=== PATIENT | female | born 1940 | race Caucasian/White ===

== ENCOUNTER 2019-07-23 11:00 | Outpatient (CLI) | payer MEDICARE, BC, SELFPAY ==
--- NOTE | ~2019-07-23 | XR_ITS ---
EXAMINATION:XR cervical spine min 6V DATE: 07/23/2019 11:19 INDICATION: Neck pain TECHNIQUE: AP, lateral in neutral, flexion, extension, lateral swimmers and odontoid views of the cer vical spine are provided. COMPARISON: None FINDINGS: There is reversal of the normal cervical lordosis. Bone alignment is normal. There is no la xity with flexion or extension. The odontoid is intact. No fracture is identified. The vertebral body heights are maintained. There is moderate loss of intervertebral disc space height at C3-4, C4-5, C5 -6, and C6-7. Small degenerative osteophytes project from the anterior endplates of multiple vertebra l bodies. There is moderate multilevel facet and uncovertebral joint osteoarthritis. Prevertebral sof t tissues are normal. IMPRESSION: 1. Moderate to severe cervical spondylosis without acute findings. Reviewed, dictated and finalized at location A.
== END 2019-07-23 11:01 | disposition home or self-care (01) ==
PROVIDERS: PCP Family Medicine; Visit Provider Family Medicine
DX: M47.892 Other spondylosis, cervical region (principal)
CPT/HCPCS: 72052

== ENCOUNTER → 2019-12-30 10:15 | Outpatient (CLI) | payer MEDICARE, BC, SELFPAY ==
--- NOTE | ~2019-12-30 | DEXA_ITS ---
Bone Density Report Name: Dominga Melendez Age: 79 Sex: Female Ethnicity: White Date of : 1940 Indication: postmenopausal; screening for osteoporosis; height loss; Referring Provider: Tash, Jinny Johnson Study: Bone densitometry was performed. Exam Date: December 30, 2019 Accession number: [id number] Bone Density: Region BMD T-score Z-score Classification AP Spine (L1-L4) 1.199 1.4 3.9 Normal Femoral Neck (Left) 0.754 -0.9 1.3 Normal Total Hip (Left) 0.986 0.4 2.3 Normal Femoral Neck (Right) 0.737 -1.0 1.2 Normal Total Hip (Right) 0.957 0.1 2.0 Normal Total Hip Mean 0.972 0.3 2.2 Normal World Health Organization criteria for BMD impression classify patients as: Normal (T-score at or above -1.0), Osteopenia (T-score between -1.0 and -2.5), or Osteoporosis (T-score at or below -2.5). 10-year Fracture Risk: FRAX not reported because: All T-scores for Spine Total, Hip Total, Femoral Neck at or above -1.0 Previous Exams: Region Exam Age BMD T-score BMD Change BMD Change Date g/cm2 vs Baseline vs Previous AP Spine(L1-L4) 12/30/2019 79 1.199 1.4 0.133* 0.021 12/01/2016 76 1.179 1.2 0.112* 0.087* 11/11/2013 73 1.091 0.4 0.025* 0.015 10/28/2010 70 1.077 0.3 0.010 0.014 10/16/2007 67 1.063 0.1 -0.004 -0.004 09/19/2004 64 1.066 0.2 Total Hip(Left) 12/30/2019 79 0.986 0.4 -0.154* -0.028* 12/01/2016 76 1.014 0.6 -0.127* -0.036* 11/11/2013 73 1.049 0.9 -0.091* -0.019 10/28/2010 70 1.069 1.0 -0.072* -0.018 10/16/2007 67 1.087 1.2 -0.053* -0.053* 09/19/2004 64 1.140 1.6 Total Hip(Right) 12/30/2019 79 0.957 0.1 -0.093* 0.007 12/01/2016 76 0.950 0.1 -0.100* -0.064* 11/11/2013 73 1.014 0.6 -0.036* -0.017 10/28/2010 70 1.031 0.7 -0.019 -0.007 10/16/2007 67 1.037 0.8 -0.013 -0.013 09/19/2004 64 1.050 0.9 *Denotes significance at 95% confidence level, LSC for AP Spine = 0.022 g/cm2, LSC for Total Hip = 0.027 g/cm2 Clinical Information Provided by Patient: Has used the following medications: Vitamin D, MTV Patient maximum height was 62 Menopause Age: 55 Onset of menses at age 15 Number of children 2
--- NOTE | ~2019-12-30 | MM_ITS ---
EXAMINATION: MM screening delphine BI w fariha HISTORY: Screening mammogram TECHNIQUE: Craniocaudal and mediolateral oblique 3-D tomosynthesis images were obtained and synthetic 2-D images were generated. CAD analysis was submitted and interpreted. COMPARISON: 12/27/2018, 12/06/2017, 12/01/2016 bilateral digital screening mammogram examinations BREAST PARENCHYMAL COMPOSITION: There are scattered areas of fibroglandular density. FINDINGS: Occasional benign calcifications are again noted on the left. There is no evidence of suspi cious mass, calcification, or architectural distortion to suggest malignancy in either breast. There has been no suspicious interval change. IMPRESSION: 1. No mammographic evidence of malignancy. 2. Recommend routine screening mammography in one year. BI-RADS Category 2: Benign finding(s). Reviewed, dictated and finalized at location A. 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
== END ==
PROVIDERS: PCP Family Medicine; Visit Provider Nurse Practitioner Obstetrics & Gynecology
DX: Z12.31 Encounter for screening mammogram for malignant neoplasm of breast (principal); Z78.0 Asymptomatic menopausal state
CPT/HCPCS: 77063; 77067; 77080

== ENCOUNTER → 2020-12-07 14:21 | Outpatient (CLI) | payer MEDICARE, BC, SELFPAY ==
--- NOTE | ~2020-12-07 | XR_ITS ---
XR hip LT min 3V w AP pelvis DATE: 12/07/2020 14:54 INDICATION: Left hip pain TECHNIQUE: AP pelvis. AP and lateral views of left hip. COMPARISON: 12/07/2020 lumbar spine FINDINGS: Diffuse osteopenia. Multilevel degenerative disc disease of the lumbar spine. Normal alignment at the pubic symphysis and sacroiliac joints. There is severe left hip osteoarthritis. No left hip fracture or dislocation, avascular necrosis or bone destruction is evident. Calcified uterine fibroid. IMPRESSION: Severe left hip osteophyte is Osteopenia Multilevel degenerative disc disease of the lumbar spine Reviewed, dictated and finalized at location A.
--- NOTE | ~2020-12-07 | XR_ITS ---
XR lumbar spine min 4V DATE: 12/07/2020 14:54 INDICATION: Low back pain TECHNIQUE: AP, lateral, bilateral oblique views, coned lateral lumbosacral view COMPARISON: None FINDINGS: There is diffuse osteopenia. There is moderate degenerative disc disease at L5-S1 and severe degenerative disc disease at the [place] ining lumbar interspaces. There is degenerative change at the apophyseal joints with associated grade 1 anterolisthesis at L4-5 . No spondylolisthesis. The included lower thoracic and lumbar pedicles are intact. No fracture or bone destruction of the azul mbar spine. The sacroiliac joints are intact. Calcified uterine fibroid. IMPRESSION: Prominent multilevel degenerative disc disease Grade 1 anterolisthesis at L4-5 due to degenerative change at the apophyseal joints Osteopenia Reviewed, dictated and finalized at location A. IMPRESSION: Prominent multilevel degenerative disc disease Grade 1 anterolisthesis at L4-5 due to degenerative change at the apophyseal june ints Osteopenia
== END ==
PROVIDERS: PCP Family Medicine; Visit Provider Family Medicine
DX: M54.50 Low back pain, unspecified (principal); M25.559 Pain in unspecified hip; M25.752 Osteophyte, left hip; M51.36 Other intervertebral disc degeneration, lumbar region; M85.89 Other specified disorders of bone density and structure, multiple sites; M43.16 Spondylolisthesis, lumbar region
CPT/HCPCS: 72110; 73502

== ENCOUNTER → 2021-01-05 10:45 | Outpatient (CLI) | payer MEDICARE, BC, SELFPAY ==
--- NOTE | ~2021-01-05 | MM_ITS ---
EXAMINATION: MM screening delphine BI w fariha HISTORY: Screening mammogram TECHNIQUE: Craniocaudal and mediolateral oblique 3-D tomosynthesis images were obtained and synthetic 2-D images were generated. CAD analysis was submitted and interpreted. COMPARISON: 12/26/2019, 12/27/2018, 12/06/2017 bilateral screening mammogram examinations BREAST PARENCHYMAL COMPOSITION: There are scattered areas of fibroglandular density. FINDINGS: Benign occasional calcifications are again noted. There is no evidence of suspicious mass, calcification, or architectural distortion to suggest malignancy in either breast. There has been no suspicious interval change. IMPRESSION: 1. No mammographic evidence of malignancy. 2. Recommend routine screening mammography in one year. BI-RADS Category 2: Benign finding(s). Reviewed, dictated and finalized at location A. 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
== END ==
PROVIDERS: PCP Family Medicine; Visit Provider Family Medicine
DX: Z12.31 Encounter for screening mammogram for malignant neoplasm of breast (principal)
CPT/HCPCS: 77063; 77067

== ENCOUNTER 2021-06-09 23:36 | Inpatient (IN) | payer MEDICARE, BC, SELFPAY ==
--- NOTE | ~2021-06-09 | XR_ITS ---
EXAMINATION: XR hip LT 2V w AP pelvis INDICATION: Left hip pain, initial encounter TECHNIQUE: AP view the pelvis and two views of the left hip are obtained. COMPARISON: 12/07/2020 FINDINGS: There is a spiral fracture in the proximal shaft of the left femur which originates at the level of the lesser trochanter. The fracture is slightly overriding and demonstrates 20 degrees of po sterior angulation at the fracture site. There is advanced osteoarthritis of the left hip. No additio nal fracture is identified. IMPRESSION: 1. Spiral fracture of the proximal shaft of the left femur. 2. Advanced osteoarthritis of left hip. Reviewed, dictated and finalized at location A.
--- NOTE | ~2021-06-09 | CT_ITS ---
EXAMINATION: CT cervical spine wo con DATE: 06/10/2021 01:39 INDICATION: Ground-level fall. Head and neck injury. TECHNIQUE: Computed tomography (CT) of the cervical spine was performed without intravenous contrast. Automated exposure control and iterative reconstruction technique were employed. Exam dose: 155.07 mGy-cm total exam DLP. COMPARISON: None FINDINGS: There is reversal cervical curvature. Prominent degenerative cystic changes at the atlantoaxial joint including large up to 6.5 x 7 mm cyst ic lesion at the right parasagittal base of the dens and prominent cystic change in the subarticular C1 right lateral mass, likely degenerative in nature. There is severe degenerative disc disease at C3-4, C4-5, C5-C6 and C6-7, with associated mild retroli sthesis at C4-5 and C5-6. No fracture or dislocation or locked facet or prevertebral soft tissue swelling is detected. IMPRESSION: Reversal cervical curvature Severe degenerative changes of cervical spine No fracture, dislocation or locked facet or prevertebral soft tissue swelling Reviewed, dictated and finalized at Location A. Reviewed, dictated and finalized at location A.
--- NOTE | ~2021-06-09 | XR_ITS ---
EXAMINATION: XR surgery orthopedic DATE: 06/10/2021 18:25 INDICATION: Fracture of proximal left femur. TECHNIQUE: 4 intraoperative fluoroscopic views of left femur were obtained. I was not present. Fluoro scopy exposure time was 82 seconds. COMPARISON: Pelvis and left hip radiographs 06/10/2021 FINDINGS: There is a spiral intertrochanteric and subtrochanteric fracture of proximal left femur sta tus post open reduction internal fixation with antegrade intramedullary candelaria, femoral head/neck screw. The distal fracture fragment demonstrates near-anatomic alignment. There is severe left hip osteoart hritis. IMPRESSION: 1. Spiral intertrochanteric and subtrochanteric fracture of proximal left femur status post open redu ction internal fixation. 2. Severe left hip osteoarthritis. Reviewed, dictated and finalized at location A. IMPRESSION: 1. Spiral intertrochanteric and subtrochanteric fracture of proximal left femur status post open reduction internal fixation. 2. Severe left hip osteoarthritis.
--- NOTE | ~2021-06-09 | CT_ITS ---
EXAMINATION: CT abdomen pelvis w con DATE: 06/10/2021 01:39 INDICATION: Left hip pain post ground-level fall TECHNIQUE: Computed tomography (CT) of the abdomen and pelvis was performed with 100 mL Omnipaque-350 intravenous contrast. Automated exposure control and iterative reconstruction technique were employe d. The dose-length product was 311.72 mGy-cm. COMPARISON: None FINDINGS: 4-5 mm right lower lobe nodule. Heart size is normal. No pericardial or pleural effusion. Gallbladder , spleen, pancreas, bilateral adrenal glands and left kidney are normal. Subcentimeter low-attenuatio n likely cysts in the liver and at the upper pole of the right kidney. 1 mm nonobstructing stone at t he lower pole of the right kidney. Mild diverticulosis along the sigmoid colon without adjacent infla mmatory change to suggest diverticulitis. Small bowel and appendix are normal. Bladder is normal. Tommy cified degenerated uterine fibroids at the fundus. Bilateral adnexa are unremarkable. Multiple phlebo liths in the pelvis. No free intraperitoneal gas or fluid. No pathologically enlarged abdominal or pe lvic lymphadenopathy. There is a partially visualized hematoma in the quadriceps musculature surrounding a displaced intert rochanteric/subtrochanteric spiral fracture of the proximal left femur. There is approximately one joshua lf shaft width medial displacement along with 2-3 cm proximal migration of the distal fragment which includes the lesser trochanter. Severe osteoarthritis at the left hip with subarticular cystic change s and remodeling of the articular surfaces about the left femoral head and acetabulum. IMPRESSION: 1. Prominent hematoma surrounding a displaced spiral fracture of the intratrochanteric/subtrochanteri c proximal left femur. 2. No acute intra-abdominal/pelvic process. 3. Nonobstructing 1 mm right renal stone. 4. Calcified uterine fibroid. 5. Diverticulosis. Reviewed, dictated and finalized at location A. IMPRESSION: 1. Prominent hematoma surrounding a displaced spiral fracture of the intratroch anteric/subtrochanteric proximal left femur. 2. No acute intra-abdominal/pelvic process. 3. Nonobstructing 1 mm right renal stone. 4. Calcified uterine fibroid. 5. Diverticulosis.
--- NOTE | ~2021-06-09 | CT_ITS ---
EXAMINATION: CT brain wo con DATE: 06/10/2021 01:39 INDICATION: Ground-level fall TECHNIQUE: Computed tomography (CT) of the head was performed without intravenous contrast. The mA wa s adjusted according to patient size. Iterative reconstruction technique was employed. Exam dose: 60 5.33 mGy-cm total exam DLP. COMPARISON: None FINDINGS: There is prominent bilateral carotid siphon internal carotid artery calcification and verte bral and basilar artery calcification. There is nonspecific diminished attenuation of the cerebral white matter, likely due to chronic small vessel ischemic changes. No intracranial mass lesion or hemorrhage or cerebrovascular accident, midline shift or mass effect e ffect is evident. There is moderate cerebral volume loss. Included paranasal sinuses and mastoid air cells are normally developed and aerated. No fracture or bone destruction of the cranial vault. IMPRESSION: Cerebral atherosclerosis and chronic small vessel ischemic changes of the cerebral white matter No acute intracranial finding Reviewed, dictated and finalized at Location A. Reviewed, dictated and finalized at location A.
[2021-06-09 23:34] VITALS: BP 177/84; PULSE 97; RESP 22; TEMP 37.1; O2SAT 98
[2021-06-10] VITALS (19 sets, daily range): BP systolic 127–166; BP diastolic 61–93; PULSE 76–782; RESP 12–20; TEMP 36.2–37.4; O2SAT 94–100; BMI 21.5
--- NOTE | 2021-06-10 00:05 | ECG_ITS ---
Measurements Intervals [place] Rate: 89 P: 63 HI: 144 QRS: 10 QRSD: 106 T: 15 QT: 390 QTc: 477 Interpretive Statements SINUS RHYTHM POSSIBLE LEFT ATRIAL ENLARGEMENT BORDERLINE R WAVE PROGRESSION, ANTERIOR LEADS BORDERLINE ST-T WAVE ABNORMALITY- INFERIOR LEADS BORDERLINE ECG Electronically Signed On 06-10-2021 6:41:06 CDT by Adelso Medina D.O.
--- NOTE | 2021-06-10 00:37 | ED.FALL ---
HPI - Fall General Chief Complaint: Fall Stated Complaint: FALL WITH HIP INJURY Time Seen by Provider: 06/09/21 23:53 Source: patient History of Present Illness HPI Narrative: Patient presents with a fall. Reports her has Parkinson's them they were getting ready for bed he tripped over his wheelchair she attempted to catch him and ended up falling on her left hip. She denies striking her head. Denies any loss of conscious denies any focal numbness or weakness. Reports pain to her left hip that is achy, constant, radiates down her leg, worse with attempting to move her left leg. She denies any prodrome prior to the fall such as chest pain lightheadedness or shortness of breath. Related Data Home Medications Medication Instructions Recorded Confirmed aspirin 81 mg tablet,delayed 81 mg PO DAILY 12/17/18 03/16/21 release cholecalciferol (vitamin D3) 125 5,000 unit PO DAILY 12/17/18 03/16/21 mcg (5,000 unit) capsule magnesium carbonate 250 mg capsule mg PO 03/11/20 03/16/21 mecobalamin (vitamin B12) 1,000 2,500 mcg PO DAILY tablet 03/11/20 03/16/21 mcg chewable tablet multivitamin 1 tablet PO DAILY 03/11/20 03/16/21 Allergies Allergy/AdvReac Type Severity Reaction Status Date / Time No Known Allergies Allergy Unknown NONE Verified 06/09/21 23:43 Review of Systems Review of Systems: CONSTITUTIONAL: Denies fever, chills, or sweats. EYES: Denies visual changes, redness, or discharge. ENT: Denies rhinorrhea, congestion, sore throat, or otalgia. CARDIOVASCULAR: Denies chest pain, palpitations, or edema. RESPIRATORY: Denies cough or dyspnea. GASTROINTESTINAL: Denies abdominal pain, nausea, vomiting, or diarrhea. GENITOURINARY: Denies dysuria or hematuria. SKIN: Denies rash or itching. MUSCULOSKELETAL: Denies back pain, joint pain, or myalgia. NEUROLOGIC: Denies headache, numbness, dizziness, or weakness. PSYCHIATRIC: Denies anxiety or depression. All systems reviewed & are unremarkable except as noted in HPI and below PMFSH Past Medical History Medical History Essential hypertension Hyperlipidemia associated with type 2 diabetes mellitus Mixed hyperlipidemia Type 2 diabetes mellitus without complication, without long-term current use of insulin Vitamin D deficiency Surgical History Surgical History No pertinent past surgical history Family History Family History Mother Heart disease Arthritis Other Carcinoma of colon Family history of arthritis Family history of cardiovascular disease Family history of coronary artery disease Social History Social History Second hand tobacco smoke exposure: No Alcohol intake: current Substance use: never Substance use type: does not use Gender identity (if verbalized by the patient): Female Exam Narrative: GENERAL: Well-appearing, well-nourished, and in no acute distress. HEAD: Normocephalic, atraumatic. EYES: PERRLA and EOMI. ENT: Nares clear, no rhinorrhea or epistaxis. Mucous membranes moist. NECK: Supple. No masses. No JVD CHEST: Clear to auscultation. No respiratory distress. No wheezes rales or rhonchi HEART: Regular rate and rhythm. No murmur heard. Normal peripheral pulses. ABDOMEN: Soft, nontender, nondistended, normal active bowel sounds. EXTREMITIES: external rotation and shortening of the left leg there is diffuse tenderness to the left hip cap refill less than 2 seconds in the left lower extremity SKIN: Warm, dry, no rash. NEURO: Cranial nerves II through XII are intact patient is 5 out of 5 strength all extremities sensation intact to light touch in all extremities alert and oriented x3. PSYCH: Normal mood and affect. Course Reevaluation(s) Reevaluation #1: Patient resting comfortably results and plan reviewe
[2021-06-10 00:53] LABS: Basophils Percent Auto 0.3 % (0.2-1.2); Eosinophils Percent Auto 0.1 % (0-4.4); Hematocrit 35.5 % (37.0-47.0); Immature Granulocyte Absolute 0.07 K/mm3 (0.00-0.031); Immature Granulocyte Percent A 0.6 % (0-0.5); Lymphocytes Absolute Auto 0.94 K/mm3 (0.9-3.2); Lymphocytes Percent Auto 7.9 % (18.3-44.2); Mean Corpuscular HGB Conc 33.8 g/dl (32-36); Mean Corpuscular Hemoglobin 30.7 pg (26-34); Mean Corpuscular Volume 90.8 fl (80-100); Monocytes Absolute Auto 0.9 K/mm3 (0.1-0.6); Monocytes Percent Auto 7.5 % (2.6-8.5); Neutrophils Absolute Auto 9.9 K/mm3 (1.3-6.7); Neutrophils Percent Auto 83.6 % (45.5-73.1); Platelet Count Result 272 k/mm3 (150-375); Red Blood Count 3.91 M/mm3 (4.2-5.4); Red Cell Distribution Width 12.5 % (11.5-14.5); White Blood Count 11.9 K/mm3 (4.5-10.0)
[2021-06-10 01:00] LABS: Alanine Aminotransferase 22 U/L (4-35); Albumin Level 4.4 g/dL (3.5-5.1); Alkaline Phosphatase 122 U/L (38-126); Anion Gap 5 mmol/L (8-16); Aspartate Amino Transferase 32 U/L (14-36); Bilirubin,Total 0.8 mg/dL (0.2-1.3); Blood Urea Nitrogen 18 mg/dL (7-17); Calcium 9.2 mg/dL (8.4-10.2); Carbon Dioxide 26 mmol/L (22-30); Chloride 101 mmol/L (98-107); Estimated CRCL calculation 55 ml/min; Estimated Glomerular Filt Rate > 60; Glucose 173 mg/dL (65-110); Potassium 3.8 mmol/L (3.4-5.0); Sodium 132 mmol/L (137-145)
[2021-06-10 01:06] LABS: INR 1.2; Prothrombin Time 14.7 Seconds (11.1-14.7)
[2021-06-10 01:07] LABS: Partial Thromboplastin Time 21.4 SECONDS (22.3-36.8)
[2021-06-10] MEDS: MORPHINE SULFATE (*CRX) 4 MG/ML INJ IV PUSH ×2 (01:15→05:00)
[2021-06-10 02:08] LABS: Appearance Urine Clear (Clear); Bilirubin Urine Negative (Negative); Blood Urine Negative (Negative); Color Urine Yellow (Yellow); Glucose Urine UA Negative (Negative); Ketones Urine 2+ mg/dL (Negative); Leukocyte Esterase Ur Negative LEU/UL (Negative); Nitrate Urine Negative (Negative); Protein Urine Trace mg/dL (Negative); Specific Grav Ur 1.015 (1.001-1.035); Urobilinogen Urine 0.2 mg/dL (<2.0)
[2021-06-10 02:18] LABS: Bacteria Urine Trace /hpf; Mucus Urine Rare /lpf
[2021-06-10 02:19] LABS: Add Urine Microscopic? YES
[2021-06-10 03:57] LABS: SARS-CoV-2 RNA PCR Negative
[2021-06-10] MEDS: SODIUM CHLORIDE 0.9% IV 1,000 ML 125 ML IV CONT ×2 (05:01→12:25)
--- NOTE | 2021-06-10 05:24 | ADMGEN ---
This patient, Dominga Melendez, was admitted to Medical Room 244-. Patient/family oriented to hospital policies and general routines including ID bracelet, bed and alarms, visiting hours, pain management, procedures, bathroom and other care routines, personal items, smoking policy, room service/diet, and visiting hours. Information on how to activate the Rapid Response Team has been discussed. Patient/Family are encouraged to report perceived risks to care and to ask questions if they do not understand what they are told or what they should do.
--- NOTE | 2021-06-10 08:59 | PM.IMHP ---
H&P: HPI History of Present Illness Date/Time: 06/10/21 08:59 Chief Complaint: Fall Narrative: 81-year-old female with diet-controlled diabetes and high blood pressure and cholesterol, presents to the emergency room after a slip and fall while trying to help prevent her from falling. Patient states that she went down hard on a carpeted surface resulting in the fracture of her leg. Patient is seen postoperatively she is doing well and she has no complaints at time my interview other than feeling is a she is uncomfortable in the bed. Pain is reported as 5/10. PACU nurse present and providing her with adequate pain control. Review of Systems Review of Systems: All systems reviewed & are unremarkable except as noted in HPI and below PMFSH Past Medical History Medical History Essential hypertension Hyperlipidemia associated with type 2 diabetes mellitus Mixed hyperlipidemia Type 2 diabetes mellitus without complication, without long-term current use of insulin Vitamin D deficiency Surgical History Surgical History No pertinent past surgical history Family History Family History Mother Heart disease Arthritis Other Carcinoma of colon Family history of arthritis Family history of cardiovascular disease Family history of coronary artery disease Social History Social History Smoking status: Never smoker Second hand tobacco smoke exposure: No Alcohol intake: never Substance use: never Substance use type: does not use Gender identity (if verbalized by the patient): Female Spiritual care concerns: No Meds Home Medications and Allergies Home Medications Medication Instructions Recorded Confirmed Type aspirin 81 mg tablet,delayed 81 mg PO DAILY 12/17/18 06/10/21 History release cholecalciferol (vitamin D3) 125 5,000 unit PO DAILY 12/17/18 06/10/21 History mcg (5,000 unit) capsule blood sugar diagnostic #100 each 04/22/19 06/10/21 Rx magnesium carbonate 250 mg capsule 250 mg PO DAILY 03/11/20 06/10/21 History mecobalamin (vitamin B12) 1,000 2,500 mcg PO DAILY tablet 03/11/20 06/10/21 History mcg chewable tablet multivitamin 1 tablet PO DAILY 03/11/20 06/10/21 History lancets 28 gauge #100 each 09/09/20 06/10/21 Rx losartan 50 mg tablet 50 mg PO DAILY #90 tablet 09/09/20 06/10/21 Rx lancets 30 gauge #100 ea 11/30/20 06/10/21 Rx rosuvastatin 5 mg tablet 5 mg PO .T TH #30 tablet 11/30/20 06/10/21 Rx meloxicam 15 mg tablet 15 mg PO DAILY #30 tablet 06/07/21 06/10/21 Rx tramadol 50 mg PO Q6H PRN 06/10/21 06/10/21 History Allergies Allergy/AdvReac Type Severity Reaction Status Date / Time No Known Allergies Allergy Unknown NONE Verified 06/09/21 23:43 Vital Signs Vital Signs - 24 hr 06/09/21 23:34 06/10/21 04:22 06/10/21 05:01 Temperature 98.7 F Pulse Rate 97 86 87 Respiratory Rate 22 H 15 16 Blood Pressure 177/84 H 127/67 137/70 Pulse Oximetry 98 96 98 06/10/21 05:26 Temperature 97.1 F L Pulse Rate 78 Respiratory Rate 18 Blood Pressure 146/80 H Pulse Oximetry 96 Exam Const: General: comfortable and no acute distress HENMT: General nose exam: Normal nares present Mouth: Yes moist mucous membranes Eyes: General: appearance normal, both eyes and all related structures Neck: Neck: no JVD Resp: Effort & Inspection: normal respiratory effort Auscultation: clear to auscultation bilaterally Cardio: Rate: regular rate Rhythm: regular rhythm GI: Inspection: non-distended GI Palp: Yes Soft to palpation Auscultation: normal bowel sounds Urinary Catheter: Urinary Catheter: patent and draining and urine clear Skin: General skin exam: normal color and no rashes or lesions noted Neuro: Cognition (Neuro): normal cognition S
--- NOTE | 2021-06-10 10:02 | PM.CNOR ---
Assessment and Plan Assessment and plan (1) Closed femur fracture: Qualifiers: Encounter type: initial encounter Femur location: unspecified portion of femur Fracture morphology: unspecified fracture morphology Laterality: left Qualified Code(s): S72.92XA - Unspecified fracture of left femur, initial encounter for closed fracture <Kat Kathryn Diggs, [employer]CLAIM[employer] - Last Filed: 06/10/21 10:55> Code(s): S72.90XA - Unspecified fracture of unspecified femur, initial encounter for closed fracture <Kat Andrew. Ruwe, [employer] RECLAIMER - Last Filed: 06/10/21 10:55> Status: Acute <Kat M. Jjwe, [employer] RECLAIMER - Last Filed: 06/10/21 10:55> Assessment and Plan: Radiographs the left hip reveal a spiral fracture of the proximal shaft of the left femur and advanced osteoarthritis of left hip. The fracture type and injury as well as radiographs discussed with the patient and family. Operative and nonoperative treatment options reviewed. The patients questions were answered. The patient desires operative treatment. Discussed Left Hip Long IT Nail Risks of surgery including but not limited to neurovascular damage, wound complications, blood clot, pulmonary embolus, stroke, myocardial infarction, anesthetic risks up to and including were reviewed. Continued pain and possible dysfunction were explained. No guarantees were offered. The patient understands and wishes to proceed. Plan: Left Hip Long IT Nail by Dr. Amin Continue bedrest. Pain control. Obtain consent. NPO. Ice lateral hip. <Katsa Kathryn Gardneroswaldo, [facility] - Last Filed: 06/10/21 10:55> (2) Arthritis of left hip: Code(s): M16.12 - Unilateral primary osteoarthritis, left hip <Kat Andrew. oswaldo, [employer] RECLAIMER - Last Filed: 06/10/21 10:55> Status: Acute <Kat Andrew. Caterina, [employer] RECLAIMER - Last Filed: 06/10/21 10:55> (3) Osteoporosis: Code(s): M81.0 - Age-related osteoporosis without current pathological fracture <Kat Andrew. Ruwe, [employer] RECLAIMER - Last Filed: 06/10/21 10:55> Status: Acute <Kat Andrew. oswaldo, [employer] RECLAIMER - Last Filed: 06/10/21 10:55> (4) Fall: Qualifiers: Encounter type: initial encounter Qualified Code(s): W19.XXXA - Unspecified fall, initial encounter <Kat MoralesCALLUM Aggarwal - Last Filed: 06/10/21 10:55> Code(s): W19.XXXA - Unspecified fall, initial encounter <Kat CALLUM Webster - Last Filed: 06/10/21 10:55> Status: Acute <KatCALLUM Flores - Last Filed: 06/10/21 10:55> Additional Plan Radiographs and assessment reviewed with attending MD and consulted surgeon, Dr. Brad Amin. Dr. Amin agrees with plan of care. No further recommendations at this time. <CALLUM Silva - Last Filed: 06/10/21 10:55> Medical record, history and consult reviewed. Patient seen and examined. 81-year-old with left hip subtrochanteric fracture. Desires operative treatment. Plan long intramedullary trochanteric nail left femur. <Brad Amin MD - Last Filed: 06/10/21 11:10> History of Present Illness HPI Consult date: 06/10/21 <CALLUM Silva - Last Filed: 06/10/21 10:55> 06/10/21 <Brad Amin MD - Last Filed: 06/10/21 11:10> Consult reason: fracture ( Left hip fracture) <CALLUM Silva - Last Filed: 06/10/21 10:55> Chief complaint: femur fracture <CALLUM Silva - Last Filed: 06/10/21 10:55> Narrative: 81-year-old female admitted via EMS to the [facility] status post fall at home while attempting to help her , who suffers from Parkinson's, to get into bed. She tripped over her and fell onto the left side and was then unable to bear weight. Radiographs of the left hip reveal a left hip fracture. Surgery consulted by the emergency room physician. Patient does have a history of left hip DJD and was previously treated by Dr. Li with an intra-articular injection most recently in February. Patient denies any other join
--- NOTE | 2021-06-10 11:10 | WPDHPUPDATE1 ---
History and Physical Update Update Date/Time: 06/10/21 11:10 History and Physical has been reviewed, including an updated exam of the patient. There are NO changes in the patient's condition. Risks, benefits, and alternatives have been discussed and questions answered. Patient agrees to proceed with procedure.
[2021-06-10] MEDS: LACTATED RINGERS 1,000 ML 30 ML IV CONT ×3 (14:45→18:35)
[2021-06-10] MEDS: TRANEXAMIC ACID 1,000MG/ISO100 1,000 MG/100 ML BAG 200 MG IVPB (14:57)
--- NOTE | 2021-06-10 15:51 | SUR.PREOP ---
TRAM BILLY UPDATED ON SURGERY START DELAY. PATIENT ALSO NOTIFIED.
[2021-06-10 16:13] LABS: Glucose Point of Care 91 mg/dl (65-105)
--- NOTE | 2021-06-10 17:06 | WPDANESEPPF ---
Anes - Initial Pre Proc Eval Procedure: Operation Date: 06/10/21 15:30 Proposed Procedures p Left Intertrochanteric Nail - Brad Amin MD Date/Time: 06/10/21 17:06 Surgeon: Mony Eli MD Pre Op Diagnosis: femur fracture Patient Data Age: 81 Gender: F Height: 1.52 m Weight: 50 kg Last Vital Signs Temp 37.4 C 06/10/21 14:43 Pulse 79 06/10/21 14:43 Resp 16 06/10/21 14:43 BP 151/68 H 06/10/21 14:43 Pulse Ox 100 06/10/21 14:43 Allergies Allergy/AdvReac Type Severity Reaction Status Date / Time No Known Allergies Allergy Unknown NONE Verified 06/09/21 23:43 Home Medications Medication Instructions Recorded Confirmed Type aspirin 81 mg tablet,delayed 81 mg PO DAILY 12/17/18 06/10/21 History release cholecalciferol (vitamin D3) 125 5,000 unit PO DAILY 12/17/18 06/10/21 History mcg (5,000 unit) capsule blood sugar diagnostic #100 each 04/22/19 06/10/21 Rx magnesium carbonate 250 mg capsule 250 mg PO DAILY 03/11/20 06/10/21 History mecobalamin (vitamin B12) 1,000 2,500 mcg PO DAILY tablet 03/11/20 06/10/21 History mcg chewable tablet multivitamin 1 tablet PO DAILY 03/11/20 06/10/21 History lancets 28 gauge #100 each 09/09/20 06/10/21 Rx losartan 50 mg tablet 50 mg PO DAILY #90 tablet 09/09/20 06/10/21 Rx lancets 30 gauge #100 ea 11/30/20 06/10/21 Rx rosuvastatin 5 mg tablet 5 mg PO .T TH #30 tablet 11/30/20 06/10/21 Rx meloxicam 15 mg tablet 15 mg PO DAILY #30 tablet 06/07/21 06/10/21 Rx tramadol 50 mg PO Q6H PRN 06/10/21 06/10/21 History Laboratory Tests 06/10/21 06/10/21 06/10/21 00:44 00:44 00:44 WBC 11.9 K/mm3 H K/mm3 (4.5-10.0) RBC 3.91 M/mm3 L M/mm3 (4.2-5.4) Hgb 12.0 g/dL g/dL (12.0-15.0) Hct 35.5 % L % (37.0-47.0) MCV 90.8 fl fl (80-100) MCH 30.7 pg pg (26-34) MCHC 33.8 g/dl g/dl (32-36) RDW 12.5 % % (11.5-14.5) Plt Count 272 k/mm3 k/mm3 (150-375) MPV 9.0 fl fl (7.4-10.4) Immature Gran % (Auto) 0.6 % H % (0-0.5) Neut % (Auto) 83.6 % H % (45.5-73.1) Lymph % (Auto) 7.9 % L % (18.3-44.2) [place] % (Auto) 7.5 % % (2.6-8.5) Eos % (Auto) 0.1 % % (0-4.4) Baso % (Auto) 0.3 % % (0.2-1.2) Lymph # (Auto) 0.94 K/mm3 K/mm3 (0.9-3.2) [place] # (Auto) 0.9 K/mm3 H K/mm3 (0.1-0.6) Eos # (Auto) 0.0 K/mm3 K/mm3 (0-0.3) Baso # (Auto) 0.0 K/mm3 K/mm3 (0.0-0.1) Abs Immat Gran (auto) 0.07 K/mm3 H K/mm3 (0.00-0.031) Absolute Neuts (auto) 9.9 K/mm3 H K/mm3 (1.3-6.7) Absolute Nucleated RBC 0.0 K/mm3 K/mm3 (0.0-0.012) Nucleated RBC % 0.0 % % (0.0-0.2) PT 14.7 Seconds Seconds (11.1-14.7) INR 1.2 APTT 21.4 SECONDS L SECONDS (22.3-36.8) Sodium 132 mmol/L L mmol/L (137-145) Potassium 3.8 mmol/L mmol/L (3.4-5.0) Chloride 101 mmol/L mmol/L (98-107) Carbon Dioxide 26 mmol/L mmol/L (22-30) Anion Gap 5 mmol/L L mmol/L (8-16) BUN 18 mg/dL H mg/dL (7-17) Creatinine 0.50 mg/dL L mg/dL (0.7-1.0) Estim Creat Clear Calc 55 ml/min ml/min Estimated GFR > 60 (59 - ) Glucose 173 mg/dL H mg/dL (65-110) POC Capillary Glucose Calcium 9.2 mg/dL mg/dL (8.4-10.2) Total Bilirubin 0.8 mg/dL mg/dL (0.2-1.3) AST 32 U/L U/L (14-36) ALT 22 U/L U/L (4-35) Alkaline Phosphatase 122 U/L U/L (38-126) Total Protein 7.0 g/dL g/dL (6.3-8.2) Albumin 4.4 g/dL g/dL (3.5-5.1) Urine Color Urine Appearance Urine pH Ur Specific [place] Urine Protein Urine Glucose (UA) Urine Ketones Ur Blood (Man) Urine Nitra
[2021-06-10] MEDS: ceFAZolin 2 GM/D5W 50 ML 2 GM/50 ML BAG IVPB (17:12)
[2021-06-10] MEDS: LIDO 1%/EPINEPHRINE 1:100,000 50 ML VIAL 20 ML INFILTRATE (17:50)
--- NOTE | 2021-06-10 18:35 | W.PM.PROC2 ---
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 She presents for operative treatment. Description of Procedure After informed consent the operative extremity was marked in the preoperative holding area. Patient received intravenous antibiotics. The patient was taken to the operative room, placed in the supine position, general anesthesia induced by the anesthesia team, and was placed on a fracture table with longitudinal traction applied to the right leg. The hip fracture was reduced to near anatomic position and verified with image intensification. A time-out was performed confirming the patient, site of the surgery and plan. The right lower extremity was prepped and draped sterilely from the knee to the iliac crest region using a ChloraPrep skin solution. Incision was made just proximal to greater trochanter down to the subcutaneous tissues. Hemostasis controlled with electrocautery. Blunt dissection through the fascia to the tip of the greater trochanter. A starter awl was placed at the tip of the greater trochanter into the medullary canal of the femur. This was checked with image intensification and was in good position. Intramedullary guide candelaria positioned. A one-step hand reaming done proximally. Intramedullary canal was reamed with a 12.5 millimeter flexible reamer. Neck angle selected off of preoperative radiographs temp plating. 125 degree 11.5mm X 34cm Nail opened on the back table and assembled. This was then inserted over the guide candelaria to the correct depth. Guide candelaria removed. Lag screw was then placed with a stab incision over the lateral femur using a 10 blade knife. Blunt dissection down to the lateral side of the bone. Soft tissue protectors placed. Guide pin placed in the center center position of the femoral head and measured. 85 millimeter x 10.5 millimeter lag screw placed to correct depth and verified with image intensification. Traction released from the leg and compression of the fracture performed with the external compression device. Proximal locking screw placed. Distal locking of the nail then performed. Stab incision made lateral distal thigh. Blunt dissection down lateral side of the femur. Soft tissue protector placed. Femur drilled from lateral to medial through the distal nail. Distal femur measured and the appropriate size screw placed. Image intensification confirmed the placement through the locking hole. Final image intensification confirmed reduction of the fracture and placement of the hardware. Wounds then thoroughly irrigated with antibiotic solution. Fascia repaired with 0 Vicryl interrupted suture. Subcutaneous tissue repaired with 00 Vicryl interrupted suture and skin repaired with geetha. Sterile dressings applied. Patient then awoke from anesthesia, extubated, taken to recovery room stable condition. All sponge, needle and instrument counts correct at the end the case. Implants Shazia natural Nail 125 degree 11.5 mm diameter 34 cm length, 10.5 mm x 85 mm lag screw, 32.5 mm x 5 mm distal locking screw Estimated Blood Loss 100 Urine Output 1,000 Drains No Packing No Pathology None sent Complications None Condition Stable Disposition PACU
[2021-06-10] MEDS: fentaNYL CITRATE INJ (*CRX) 100 MCG/2 ML VIAL 25 MCG IV PUSH ×4 (18:58→19:23)
[2021-06-10] MEDS: FAMOTIDINE 20 MG TABLET PO (22:45)
[2021-06-11] MEDS: MORPHINE SULFATE (*CRX) 4 MG/ML INJ IV PUSH (00:29)
[2021-06-11 04:14] VITALS: BP 135/71; PULSE 83; RESP 18; TEMP 36.4; O2SAT 99
[2021-06-11 06:06] LABS: Basophils Percent Auto 0.2 % (0.2-1.2); Hemoglobin 10.2 g/dL (12.0-15.0); Immature Granulocyte Absolute 0.04 K/mm3 (0.00-0.031); Immature Granulocyte Percent A 0.4 % (0-0.5); Lymphocytes Absolute Auto 1.41 K/mm3 (0.9-3.2); Lymphocytes Percent Auto 15.5 % (18.3-44.2); Mean Corpuscular HGB Conc 32.9 g/dl (32-36); Mean Corpuscular Hemoglobin 31.3 pg (26-34); Mean Corpuscular Volume 95.1 fl (80-100); Mean Platelet Volume 9.3 fl (7.4-10.4); Monocytes Absolute Auto 1.2 K/mm3 (0.1-0.6); Monocytes Percent Auto 13.3 % (2.6-8.5); Neutrophils Absolute Auto 6.4 K/mm3 (1.3-6.7); Neutrophils Percent Auto 70.6 % (45.5-73.1); Platelet Count Result 214 k/mm3 (150-375); Red Blood Count 3.26 M/mm3 (4.2-5.4); Red Cell Distribution Width 12.4 % (11.5-14.5); White Blood Count 9.1 K/mm3 (4.5-10.0)
[2021-06-11 06:19] LABS: Anion Gap 2 mmol/L (8-16); Blood Urea Nitrogen 10 mg/dL (7-17); Calcium 8.4 mg/dL (8.4-10.2); Carbon Dioxide 29 mmol/L (22-30); Chloride 103 mmol/L (98-107); Estimated CRCL calculation 46 ml/min; Estimated Glomerular Filt Rate > 60; Glucose 108 mg/dL (65-110); Magnesium 2.1 mg/dL (1.6-2.3); Sodium 134 mmol/L (137-145)
--- NOTE | 2021-06-11 08:35 | PM.IMPN ---
Progress Note: A&P Assessment and Plan (1) Fall: Qualifiers: Encounter type: initial encounter Qualified Code(s): W19.XXXA - Unspecified fall, initial encounter Code(s): W19.XXXA - Unspecified fall, initial encounter Status: Acute (2) Closed femur fracture: Qualifiers: Encounter type: initial encounter Femur location: unspecified portion of femur Fracture morphology: unspecified fracture morphology Laterality: left Qualified Code(s): S72.92XA - Unspecified fracture of left femur, initial encounter for closed fracture Code(s): S72.90XA - Unspecified fracture of unspecified femur, initial encounter for closed fracture Status: Acute (3) Hyperlipidemia associated with type 2 diabetes mellitus: Code(s): E11.69 - Type 2 diabetes mellitus with other specified complication; E78.5 - Hyperlipidemia, unspecified Status: Acute (4) Essential hypertension: Code(s): I10 - Essential (primary) hypertension Status: Acute Additional Plan Admit to med surge Pain control Monitor vital signs Q shift Consult ortho To OR for IM nailing Home medications reconciled VTEP per ortho 06/11/21 POD 1 s/p IM nailing L femur doing ok pain controlled VS and labs WNLs postop orders per ortho PT/OT VTEP Subjective Date/time seen: 06/11/21 08:35 pt ok complains of pain from SCD causing cramping in her post op leg otherwise doing ok Exam Const: General: comfortable and no acute distress HENMT: General nose exam: Normal nares present Mouth: Yes moist mucous membranes Eyes: General: appearance normal, both eyes and all related structures Neck: Neck: no JVD Resp: Effort & Inspection: normal respiratory effort Auscultation: clear to auscultation bilaterally Cardio: Rate: regular rate Rhythm: regular rhythm GI: Inspection: non-distended Auscultation: normal bowel sounds Urinary Catheter: Urinary Catheter: patent and draining and urine clear Skin: General skin exam: normal color and no rashes or lesions noted Neuro: Cognition (Neuro): normal cognition Speech: normal speech Motor exam (neuro): 5/5 motor strength present throughout (Left lower extremity postoperative leg is not evaluated) and Normal motor muscle tone present throughout Extrem: General: normal to inspection, no edema, no pedal edema and other (L lateral hip w 2 sites covered by gauze dressings and covered w tegaderm ) Psych: Mental Status: mental status grossly normal Affect: normal affect Objective Data Vital Signs Vital Signs: Vital Signs - 24 hr 06/10/21 14:00 06/10/21 14:43 06/10/21 16:00 Temperature 98.8 F 99.3 F Pulse Rate 79 79 80 Respiratory Rate 18 16 16 Blood Pressure 136/61 151/68 H 144/80 H Pulse Oximetry 99 100 99 06/10/21 18:35 06/10/21 18:50 06/10/21 19:05 Temperature 97.2 F L Pulse Rate 86 82 78 Respiratory Rate 16 20 13 Blood Pressure 152/93 H 166/77 H 166/79 H Pulse Oximetry 100 100 95 06/10/21 19:20 06/10/21 19:35 06/10/21 19:50 Temperature Pulse Rate 82 76 85 Respiratory Rate 12 18 19 Blood Pressure 162/90 H 151/77 H 131/71 Pulse Oximetry 97 96 97 06/10/21 20:00 06/10/21 20:15 06/10/21 20:45 Temperature 98.1 F 98.1 F 98.1 F Pulse Rate 782 H 782 H 76 Respiratory Rate 20 20 20 Blood Pressure 133/76 133/76 128/65 Pulse Oximetry 98 98 94 06/10/21 21:05 06/10/21 21:45 06/10/21 22:00 Temperature 98.1 F 98 F Pulse Rate 76 76 Respiratory Rate 20 20 Blood Pressure 128/65 128/65 Pulse Oximetry 98 95 94 06/10/21 23:56 06/11/21 04:14 Temperature 98.9 F 97.5 F L Pulse Rate 77 83 Respiratory Rate 18 18 Blood Pressure 134/66 135/71 Pulse Oximetry 98 99 Intake/Output Intake/Output: Intake & Output 06/08/21 06/09/21 06/10/21 06/11/21 23:59 23:59 23:59 23:59 Intake Total 2490 350 Output Total 2500 1000 Balance -10 -650 Meds/Results Medications: Active Medications Generic Name Dose Route Start Last Admin
[2021-06-11] MEDS: CYANOCOBALAMIN 1,000 MCG TABLET 2000 MCG PO (09:19)
[2021-06-11] MEDS: SENNA/DOCUSATE SODIUM TABLET 2 TAB PO ×2 (09:19→16:57)
[2021-06-11] MEDS: FAMOTIDINE 20 MG TABLET PO ×2 (09:19→20:11)
[2021-06-11] MEDS: LOSARTAN POTASSIUM 50 MG TABLET PO (09:20)
--- NOTE | 2021-06-11 09:55 | P.PNAN_ITS ---
Anes - Prog Note Post-Op Date/Time: 06/11/21 09:55 Cardiovascular status: normal Respiratory status: normal Airway patency: baseline Mental status: baseline Post-Op hydration status: normal Vital Signs: Last Vital Signs Temp 97.5 F L 06/11/21 04:14 Pulse 83 06/11/21 04:14 Resp 18 06/11/21 04:14 BP 135/71 06/11/21 04:14 Pulse Ox 99 06/11/21 04:14 Pain Score (VAS): 10 I/O: Intake & Output 06/10/21 06/11/21 06/11/21 23:59 07:59 15:59 Intake Total 1150 350 360 Output Total 1500 1000 Balance -350 -650 360 Laboratory Tests 06/11/21 05:30 06/11/21 05:30 06/10/21 06/11/21 06/11/21 16:10 05:30 05:30 WBC 9.1 RBC 3.26 L Hgb 10.2 L Hct 31.0 L MCV 95.1 MCH 31.3 MCHC 32.9 RDW 12.4 Plt Count 214 MPV 9.3 Immature Gran % (Auto) 0.4 Neut % (Auto) 70.6 Lymph % (Auto) 15.5 L [place] % (Auto) 13.3 H Eos % (Auto) 0.0 Baso % (Auto) 0.2 Lymph # (Auto) 1.41 [place] # (Auto) 1.2 H Eos # (Auto) 0.0 Baso # (Auto) 0.0 Abs Immat Gran (auto) 0.04 H Absolute Neuts (auto) 6.4 Absolute Nucleated RBC 0.0 Nucleated RBC % 0.0 Sodium 134 L Potassium 4.0 Chloride 103 Carbon Dioxide 29 Anion Gap 2 L BUN 10 D Creatinine 0.60 L Estim Creat Clear Calc 46 Estimated GFR > 60 Glucose 108 POC Capillary Glucose 91 Calcium 8.4 Magnesium 2.1 Post-procedural complaints: none Patient Feedback: Patient satisfied with anesthetic care.
[2021-06-11] MEDS: MULTIVITAMINS THERAPEUTIC TAB (*BKC) 1 TABLET PO (11:27)
[2021-06-11] MEDS: CYANOCOBALAMIN 500 MCG TABLET PO (11:27)
[2021-06-11] MEDS: CELECOXIB 200 MG CAPSULE PO (11:28)
[2021-06-11 14:00] VITALS: BP 116/55; PULSE 84; RESP 18; TEMP 36.6; O2SAT 98
--- NOTE | 2021-06-11 14:10 | PM.PNORT ---
Progress Note: A&P Additional Plan POD 1 DOING WELL. UP WITH PT TOLERATED. Subjective Subjective Date/Time Seen: 06/11/21 14:10 POD 1 STABLE. PAIN IS CONTROLLED. 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 [employer]TACT [employer]G [employer] SIGN Objective Data Vital Signs Vital Signs: Vital Signs - 24 hr 06/10/21 14:43 06/10/21 16:00 06/10/21 18:35 Temperature 37.4 C 36.2 C L Pulse Rate 79 80 86 Respiratory Rate 16 16 16 Blood Pressure 151/68 H 144/80 H 152/93 H Pulse Oximetry 100 99 100 06/10/21 18:50 06/10/21 19:05 06/10/21 19:20 Temperature Pulse Rate 82 78 82 Respiratory Rate 20 13 12 Blood Pressure 166/77 H 166/79 H 162/90 H Pulse Oximetry 100 95 97 06/10/21 19:35 06/10/21 19:50 06/10/21 20:00 Temperature 36.7 C Pulse Rate 76 85 782 H Respiratory Rate 18 19 20 Blood Pressure 151/77 H 131/71 133/76 Pulse Oximetry 96 97 98 06/10/21 20:15 06/10/21 20:45 06/10/21 21:05 Temperature 36.7 C 36.7 C Pulse Rate 782 H 76 Respiratory Rate 20 20 Blood Pressure 133/76 128/65 Pulse Oximetry 98 94 98 06/10/21 21:45 06/10/21 22:00 06/10/21 23:56 Temperature 36.7 C 36.6 C 37.2 C Pulse Rate 76 76 77 Respiratory Rate 20 20 18 Blood Pressure 128/65 128/65 134/66 Pulse Oximetry 95 94 98 06/11/21 04:14 Temperature 36.4 C L Pulse Rate 83 Respiratory Rate 18 Blood Pressure 135/71 Pulse Oximetry 99 Intake/Output Intake/Output: Intake & Output 06/08/21 06/09/21 06/10/21 06/11/21 23:59 23:59 23:59 23:59 Intake Total 2490 760 Output Total 2500 1000 Balance -10 -240 Meds/Results Medications: Active Medications Generic Name Dose Route Start Last Admin Trade Name Freq PRN Reason Stop Dose Admin Acetaminophen 650 mg 06/10/21 20:00 Acetaminophen 325 Mg Tablet PO Q6H PRN Mild Pain (1-3) or Fever Hydrocodone Bitart/Acetaminophen 1 tab 06/10/21 20:00 Hydrocodone/Acetaminophen (*Crx) 5-325 Mg Tablet PO Q3H PRN Pain Rated 4-6 Celecoxib 200 mg 06/11/21 08:00 06/11/21 11:28 Celecoxib 200 Mg Capsule PO 200 mg DAILY@0800 DEL Administration Cyanocobalamin 2,000 mcg 06/11/21 09:00 06/11/21 09:19 Cyanocobalamin 1,000 Mcg Tablet PO 2,000 mcg DAILY DEL Administration Cyanocobalamin 500 mcg 06/11/21 09:00 06/11/21 11:27 Cyanocobalamin 500 Mcg Tablet PO 500 mcg DAILY DEL Administration Famotidine 20 mg 06/10/21 21:00 06/11/21 09:19 Famotidine 20 Mg Tablet PO 20 mg Q12HR DEL Administration Hydralazine HCl 5 mg 06/10/21 20:00 Hydralazine Hcl 20 Mg/Ml Vial IV PUSH Q6H PRN Blood Pressure - High SBP>160 Cefazolin Sodium 1 gm in 50 mls @ 100 mls/hr 06/11/21 01:00 06/11/21 09:51 Ancef 1 Gm/D5w 50 Ml Pm IVPB 06/11/21 17:29 Infused Q8H DEL Infusion Losartan Potassium 50 mg 06/11/21 09:00 06/11/21 09:20 Losartan Potassium 50 Mg Tablet PO 50 mg DAILY DEL Administration Magnesium Hydroxide 30 ml 06/10/21 20:00 Magnesium Hydroxide Susp 30 Ml Udc PO BID PRN Constipation Miscellaneous Information 1 each 06/10/21 20:30 Magnesium Carbonate Nonformulary. Can Patient Use From Home Or Can We Switch To Magnesium XX 07/10/21 20:29 CLARIFY DEL Morphine Sulfate 4 mg 06/10/21 03:52 06/11/21 00:29 Morphine Sulfate (*Crx) 4 Mg/Ml Inj IV PUSH 4 mg Q2H PRN Administration Pain Rated 7-10 Multivitamins Therapeutic 1 tablet 06/11/21 09:00 06/11/21 11:27 Multivitamins Therapeutic Tab (*Bkc) PO 1 tablet DAILY DEL Administration Naloxone HCl 0.1 mg 06/10/21 20:00 Naloxone Hcl 0.4 Mg/Ml Vial IV PUSH Q2M PRN Opiate Reversal Non-Formulary Medication 250 mg 06/11/21 09:00 Magnesium Carbonate PO 07/11/21 08:59 DAILY DEL Ondansetron HCl 4 mg 06/10/21 20:00 Ondansetron Inj 4 Mg/2 Ml Vial IV PUSH Q4H PRN Nausea And Vomiting Polyethylene Glycol 17 gm 06/11/21 09:00 Polye
[2021-06-11] MEDS: RIVAROXABAN 10 MG TABLET PO (16:57)
[2021-06-11] MEDS: polyethylene glycoL 3350 17 GM POWD.PACK PO (17:04)
[2021-06-11 22:00] VITALS: BP 133/75; PULSE 87; RESP 14; TEMP 36.9; O2SAT 99
[2021-06-11 23:10] VITALS: O2SAT 97
[2021-06-12] MEDS: HYDROcodone/acetaminophen (*CRX) 5-325 MG TABLET 1 TAB PO (02:03)
[2021-06-12 06:00] VITALS: BP 120/69; PULSE 88; RESP 14; TEMP 36.7; O2SAT 98
[2021-06-12] MEDS: CELECOXIB 200 MG CAPSULE PO (09:55)
[2021-06-12] MEDS: CYANOCOBALAMIN 1,000 MCG TABLET 2000 MCG PO (09:55)
[2021-06-12] MEDS: SENNA/DOCUSATE SODIUM TABLET 2 TAB PO (09:55)
[2021-06-12] MEDS: MULTIVITAMINS THERAPEUTIC TAB (*BKC) 1 TABLET PO (09:56)
[2021-06-12] MEDS: CYANOCOBALAMIN 500 MCG TABLET PO (09:56)
[2021-06-12] MEDS: FAMOTIDINE 20 MG TABLET PO (09:56)
[2021-06-12] MEDS: LOSARTAN POTASSIUM 50 MG TABLET PO (09:56)
[2021-06-12] MEDS: polyethylene glycoL 3350 17 GM POWD.PACK PO (10:01)
--- NOTE | 2021-06-12 11:17 | PM.PNORT ---
Progress Note: A&P Additional Plan POD 2 DOING WELL, STABLE. DC PER MEDICINE. CONTINUE PT Subjective Subjective Date/Time Seen: 06/12/21 11:17 POD 2 DOING WELL. 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 NON TENDER Objective Data Vital Signs Vital Signs: Vital Signs - 24 hr 06/11/21 14:00 06/11/21 22:00 06/11/21 23:10 Temperature 36.6 C 36.9 C Pulse Rate 84 87 Respiratory Rate 18 14 Blood Pressure 116/55 L 133/75 Pulse Oximetry 98 99 97 06/12/21 06:00 Temperature 36.7 C Pulse Rate 88 Respiratory Rate 14 Blood Pressure 120/69 Pulse Oximetry 98 Intake/Output Intake/Output: Intake & Output 06/09/21 06/10/21 06/11/21 06/12/21 23:59 23:59 23:59 23:59 Intake Total 2490 1240 600 Output Total 2500 1800 650 Balance -10 -560 -50 Meds/Results Medications: Active Medications Generic Name Dose Route Start Last Admin Trade Name Freq PRN Reason Stop Dose Admin Acetaminophen 650 mg 06/10/21 20:00 Acetaminophen 325 Mg Tablet PO Q6H PRN Mild Pain (1-3) or Fever Hydrocodone Bitart/Acetaminophen 1 tab 06/10/21 20:00 06/12/21 02:03 Hydrocodone/Acetaminophen (*Crx) 5-325 Mg Tablet PO 1 tab Q3H PRN Administration Pain Rated 4-6 Celecoxib 200 mg 06/11/21 08:00 06/12/21 09:55 Celecoxib 200 Mg Capsule PO 200 mg DAILY@0800 DEL Administration Cyanocobalamin 2,000 mcg 06/11/21 09:00 06/12/21 09:55 Cyanocobalamin 1,000 Mcg Tablet PO 2,000 mcg DAILY DEL Administration Cyanocobalamin 500 mcg 06/11/21 09:00 06/12/21 09:56 Cyanocobalamin 500 Mcg Tablet PO 500 mcg DAILY DEL Administration Famotidine 20 mg 06/10/21 21:00 06/12/21 09:56 Famotidine 20 Mg Tablet PO 20 mg Q12HR DEL Administration Hydralazine HCl 5 mg 06/10/21 20:00 Hydralazine Hcl 20 Mg/Ml Vial IV PUSH Q6H PRN Blood Pressure - High SBP>160 Losartan Potassium 50 mg 06/11/21 09:00 06/12/21 09:56 Losartan Potassium 50 Mg Tablet PO 50 mg DAILY DEL Administration Magnesium Hydroxide 30 ml 06/10/21 20:00 Magnesium Hydroxide Susp 30 Ml Udc PO BID PRN Constipation Morphine Sulfate 4 mg 06/10/21 03:52 06/11/21 00:29 Morphine Sulfate (*Crx) 4 Mg/Ml Inj IV PUSH 4 mg Q2H PRN Administration Pain Rated 7-10 Multivitamins Therapeutic 1 tablet 06/11/21 09:00 06/12/21 09:56 Multivitamins Therapeutic Tab (*Bkc) PO 1 tablet DAILY DEL Administration Naloxone HCl 0.1 mg 06/10/21 20:00 Naloxone Hcl 0.4 Mg/Ml Vial IV PUSH Q2M PRN Opiate Reversal Ondansetron HCl 4 mg 06/10/21 20:00 Ondansetron Inj 4 Mg/2 Ml Vial IV PUSH Q4H PRN Nausea And Vomiting Polyethylene Glycol 17 gm 06/11/21 09:00 06/12/21 10:01 Polyethylene Glycol 3350 17 Gm Powd.Pack PO 17 gm QAM DEL Administration Rivaroxaban 10 mg 06/11/21 17:00 06/11/21 16:57 Rivaroxaban 10 Mg Tablet PO 10 mg DAILY@17 [facility] Administration Rosuvastatin Calcium 5 mg 06/14/21 20:15 Rosuvastatin 5 Mg Tablet PO TuTh [facility] Senna/Docusate Sodium 2 tab 06/11/21 09:00 06/12/21 09:55 Senna/Docusate Sodium Tablet PO 2 tab BID DEL Administration Radiology Results: ITS Impressions Hip/Pelvis X-Ray 06/10/21 07:15 IMPRESSION: 1. Spiral fracture of the proximal shaft of the left femur. 2. Advanced osteoarthritis of left hip. Head CT 06/10/21 07:27 IMPRESSION: Cerebral atherosclerosis and chronic small vessel ischemic changes of the cerebral white matter No acute intracranial finding Cervical Spine CT 06/10/21 07:31 IMPRESSION: Reversal cervical curvature Severe degenerative changes of cervical spine No fracture, dislocation or locked facet or prevertebral soft tissue swelling Abdomen/Pelvis CT 06/10/21 07:33 IMPRESSION: 1. Prominent hematoma surrounding a displaced spiral fracture of the int
--- NOTE | 2021-06-12 12:42 | PM.DS ---
DS: Admitting Diagnosis Discharge Date 06/12/21 Admitting Diagnosis (1) Fall: Qualifiers: Encounter type: initial encounter Qualified Code(s): W19.XXXA - Unspecified fall, initial encounter Code(s): W19.XXXA - Unspecified fall, initial encounter Status: Acute (2) Closed femur fracture: Qualifiers: Encounter type: initial encounter Femur location: unspecified portion of femur Fracture morphology: unspecified fracture morphology Laterality: left Qualified Code(s): S72.92XA - Unspecified fracture of left femur, initial encounter for closed fracture Code(s): S72.90XA - Unspecified fracture of unspecified femur, initial encounter for closed fracture Status: Acute (3) Hyperlipidemia associated with type 2 diabetes mellitus: Code(s): E11.69 - Type 2 diabetes mellitus with other specified complication; E78.5 - Hyperlipidemia, unspecified Status: Acute (4) Essential hypertension: Code(s): I10 - Essential (primary) hypertension Status: Acute DS: Discharge Diagnosis Discharge Diagnosis (1) Fall: Qualifiers: Encounter type: initial encounter Qualified Code(s): W19.XXXA - Unspecified fall, initial encounter Code(s): W19.XXXA - Unspecified fall, initial encounter Status: Acute (2) Closed femur fracture: Qualifiers: Encounter type: initial encounter Femur location: unspecified portion of femur Fracture morphology: unspecified fracture morphology Laterality: left Qualified Code(s): S72.92XA - Unspecified fracture of left femur, initial encounter for closed fracture Code(s): S72.90XA - Unspecified fracture of unspecified femur, initial encounter for closed fracture Status: Acute (3) Hip pain: Code(s): M25.559 - Pain in unspecified hip Status: Acute (4) Osteoporosis: Code(s): M81.0 - Age-related osteoporosis without current pathological fracture Status: Acute (5) Low back pain: Code(s): M54.50 - Low back pain, unspecified Status: Acute (6) Hyperlipidemia associated with type 2 diabetes mellitus: Code(s): E11.69 - Type 2 diabetes mellitus with other specified complication; E78.5 - Hyperlipidemia, unspecified Status: Acute (7) Type 2 diabetes mellitus without complication, without long-term current use of insulin: Code(s): E11.9 - Type 2 diabetes mellitus without complications Status: Acute (8) Essential hypertension: Code(s): I10 - Essential (primary) hypertension Status: Acute DS: Summary Hospital Course Reason for hospitalization: Fall Hospital Course: Admit to med surge Pain control Monitor vital signs Q shift Consult ortho To OR for IM nailing Home medications reconciled VTEP per ortho 06/11/21 POD 1 s/p IM nailing L femur doing ok pain controlled VS and labs WNLs postop orders per ortho PT/OT VTEP 06/12/21 dc home in stable condition w C Xarelto Celecoxib and [place] f/u w PCP w/in 3 days and Ortho as directed Status at Discharge Overall status at discharge: patient is progressing back to baseline Time Spent with Patient Time attestation: Total time spent providing and/or coordinating discharge services: Time spent: Greater than 30 minutes Exam Const: General: comfortable and no acute distress HENMT: General nose exam: Normal nares present Mouth: Yes moist mucous membranes Eyes: General: appearance normal, both eyes and all related structures Neck: Neck: no JVD Resp: Effort & Inspection: normal respiratory effort Auscultation: clear to auscultation bilaterally Cardio: Rate: regular rate Rhythm: regular rhythm GI: Inspection: non-distended Auscultation: normal bowel sounds Urinary Catheter: Urinary Catheter: patent and draining and urine clear Skin: General skin exam: normal color and no rashes or lesions noted Neuro: Cognition (Neuro): normal cognition Speech: normal speech Motor exam (ne
== END 2021-06-12 16:15 | disposition home or self-care (01) | DRG 482 ==
LOC: ANHED 06-10 03:50 → ANH2MED 06-10 07:50
PROVIDERS: Orthopaedic Surgery; Admitting Provider Internal Medicine; Emergency Provider Emergency Medicine; PCP Family Medicine; Visit Provider Hospitalist
PROC: 0QS736Z Reposition Left Upper Femur with Intramedullary Internal Fixation Device, Percutaneous Approach (ICD-10-PCS; CPT 27245; principal; 2021-06-10 15:30)
DX: S72.22XA Displaced subtrochanteric fracture of left femur, initial encounter for closed fracture (principal); E11.69 Type 2 diabetes mellitus with other specified complication; E78.2 Mixed hyperlipidemia; W01.0XXA Fall on same level from slipping, tripping and stumbling without subsequent striking against object, initial encounter; M16.12 Unilateral primary osteoarthritis, left hip; M81.0 Age-related osteoporosis without current pathological fracture; Z20.822 Contact with and (suspected) exposure to COVID-19; I10 Essential (primary) hypertension; E55.9 Vitamin D deficiency, unspecified; M54.50 Low back pain, unspecified; Z79.82 Long term (current) use of aspirin; Z79.899 Other long term (current) drug therapy
CPT/HCPCS: 36415; 70450; 72125; 73502; 74177; 80048; 80053; 81001; 82948; 83735; 85025; 85610; 85730; 93005; 96361; 96374; 96376; 97110; 97116; 97161; 97165; 97530; 97535; 99285; A9270; C1713; C9803; G0378; J0131; J0690; J1100; J2270; J2370; J2405; J2704; J3010; J7030; J7120; Q9967; U0003; U0005

== ENCOUNTER 2021-11-24 13:00 | Outpatient (RCR) | payer MEDICARE, BC, SELFPAY ==
--- NOTE | 2021-10-04 12:54 | PTOPEVAL1 ---
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 He has been in and out of facilities, has been using walker since injury. Is most concerned about not being able to get off of walker. Making her life difficulty wiht RW in house, and has developed shoulder issue she feels related to RW use. Reported Pain Level Pain Score 0,5: Self Report Assessment PT Clinical Summary Pt presents w/ Left hip pain, R shoulder pain, balance and mobility issues. Presentation also shows bilat knee mobility issues and gait abnormality. Use of RW for gait related to prior L hip fracture 06/26, which also shows severely decreased AROM/PROM multiple planes with capsular end-feels. Pt also demo's weakness in urrutia hip musculature domo glute med and max. Pt would thus greatly benefit from physical therapy to address impairments and improve functional mobility. Plan of Care Interventions Electrical Stimulation,Gait Training,Hot Pack/Cold Pack,Manual Therapy,Neuro Re-education,Patient/ Caregiver Educati,Therapeutic Activities, Therapeutic Exercise,Self-Care/Home Management PT Services Indicated Yes Treatment Frequency and 2x weekly x 4 weeks Duration These treatments will address the objective and functional deficits as defined above. The patient will be advanced safely and appropriately in order for the patient to progress towards his/her prior level of function. Additional exercises will be introduced and as well as a comprehensive home exercise program upon discharge, if needed, ?to ensure carryover of functional gains achieved in the clinic. This treatment plan has been reviewed and agreement upon by the patient.
--- NOTE | 2021-10-26 15:53 | PTOPEVAL1 ---
Assessment and note entered by Amina Fuller, PT Evaluation Information Assessment Status Progress Subjective Information Feels has improved however wants to get off of the walker Reported Pain Level Pain Score 3,4: Self Report Assessment PT Clinical Summary Pt presents w/ Left hip pain s/p hip fracture in June of this year, R shoulder pain, balance and mobility issues. She has attended her therapy consistently and performed her HEP the past four weeks and shows improvement in multiple aspects of her hip mobility, strength, and gait. However, she cont to have difficulty with initial movements after prolonged positions, cont to have deficits and Active and Passive ROM as well as strength, and while her gait is improved she has yet to meet her goal for weaning from the walker. Thus pt would benefit from continued therapy, to progress her ROM, strength, pain, and functional mobility in order to meet her goals for independence. Plan of Care Interventions Gait Training,Hot Pack/Cold Pack,Manual Therapy, Neuro Re-education,Therapeutic Activities, Therapeutic Exercise,Self-Care/Home Management PT Services Indicated Yes Treatment Frequency and 2x weekly x 4 weeks Duration These treatments will address the objective and functional deficits as defined above. The patient will be advanced safely and appropriately in order for the patient to progress towards his/her prior level of function. Additional exercises will be introduced and as well as a comprehensive home exercise program upon discharge, if needed, ?to ensure carryover of functional gains achieved in the clinic. This treatment plan has been reviewed and agreement upon by the patient.
== END 2022-01-02 23:59 | disposition home or self-care (01) ==
LOC: ANHPT 13:00
PROVIDERS: PCP Family Medicine; Referring Provider Family Medicine; Visit Provider Family Medicine
DX: M70.71 Other bursitis of hip, right hip (principal); S72.90XD Unspecified fracture of unspecified femur, subsequent encounter for closed fracture with routine healing; R29.898 Other symptoms and signs involving the musculoskeletal system; R26.81 Unsteadiness on feet
CPT/HCPCS: 97014; 97032; 97110; 97116; 97140; 97162; 97530; G0283

== ENCOUNTER 2021-12-13 10:34 | Outpatient (CLI) | payer MEDICARE, BC, SELFPAY ==
--- NOTE | ~2021-12-13 | XR_ITS ---
EXAMINATION: XR lg joint inject/asp w image DATE: 12/13/2021 11:53 INDICATION: Left hip arthritis. TECHNIQUE: A time-out was performed to verify the patient's name, date of , and procedure to b e performed. The procedure including the risks, benefits, and alternatives was discussed with the pat ient. Risks discussed included bleeding and infection. The patient understood the risks and agreed to proceed. The skin overlying the left hip joint was prepped and draped in usual sterile fashion. An esthetic was administered with 1% lidocaine subcutaneously. A 22 G needle was advanced under fluoros copic guidance into the joint. Subsequently, injectate consisting of 2 mL 0.5% bupivacaine and 1 mL 80 mg/mL Depo-Medrol was instilled. The needle was removed and the entry site was cleaned and dresse d. There were no immediate complications. Fluoroscopy exposure time was 0.1 minutes. The total numbe r of images was 1. FINDINGS: Real-time fluoroscopy demonstrates the needle in the left hip joint. Patient's pain prior t o procedure:04/14. Patient's pain following the procedure: 04/14. IMPRESSION: 1. Fluoroscopy guided left hip joint injection of local anesthetic and steroid . Reviewed, dictated and finalized at location A. 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
== END 2021-12-13 10:35 | disposition home or self-care (01) ==
PROVIDERS: PCP Family Medicine; Visit Provider Orthopaedic Surgery
DX: M16.12 Unilateral primary osteoarthritis, left hip (principal)
CPT/HCPCS: 20610; 77002; J1040

== ENCOUNTER → 2022-03-24 11:21 | Outpatient (CLI) | payer MEDICARE, BC, SELFPAY ==
--- NOTE | ~2022-03-24 | MM_ITS ---
EXAMINATION: MM screening delphine BI w fariha HISTORY: Screening mammogram TECHNIQUE: Craniocaudal and mediolateral oblique 3-D tomosynthesis images were obtained and synthetic 2-D images were generated. CAD analysis was submitted and interpreted. COMPARISON: 01/05/2021, 12/26/2019, 12/27/2018 bilateral screening mammogram examinations BREAST PARENCHYMAL COMPOSITION: There are scattered areas of fibroglandular density. FINDINGS: Occasional benign calcifications. There is no evidence of suspicious mass, calcification, o r architectural distortion to suggest malignancy in either breast. There has been no suspicious inter bill change. IMPRESSION: 1. No mammographic evidence of malignancy. 2. Recommend routine screening mammography in one year. BI-RADS Category 2: Benign finding(s). Reviewed, dictated and finalized at location A. 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
== END ==
PROVIDERS: PCP Family Medicine; Visit Provider Family Medicine
DX: Z12.31 Encounter for screening mammogram for malignant neoplasm of breast (principal)
CPT/HCPCS: 77063; 77067

== ENCOUNTER 2022-06-05 10:43 | Outpatient (CLI) | payer MEDICARE, BC, SELFPAY ==
--- NOTE | ~2022-06-05 | XR_ITS ---
EXAMINATION: XR lg joint inject/asp w image DATE: 06/05/2022 11:46 INDICATION: Left hip arthritis. TECHNIQUE: A time-out was performed to verify the patient's name, date of , and procedure to b e performed. The procedure including the risks, benefits, and alternatives was discussed with the pat ient. Risks discussed included bleeding and infection. The patient understood the risks and agreed to proceed. The skin overlying the left hip joint was prepped and draped in usual sterile fashion. An esthetic was administered with 1% lidocaine subcutaneously. A 22 G needle was advanced under fluoros copic guidance into the joint. Subsequently, injectate consisting of 2 mL 0.5% bupivacaine and 1 mL 80 mg/mL Depo-Medrol was instilled. The needle was removed and the entry site was cleaned and dresse d. There were no immediate complications. Fluoroscopy exposure time was 0.1 minutes. The total numbe r of images was 1. FINDINGS: Real-time fluoroscopy demonstrates the needle in the left hip joint. Patient's pain prior t o procedure:4/10. Patient's pain following the procedure: 0/10. There is internal fixation of proxim al left femur. 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 There is moderate left hip osteoarthritis. IMPRESSION: 1. Fluoroscopy guided left hip joint injection of local anesthetic and steroid with decrease in the p atient's presenting pain. Reviewed, dictated and finalized at location A. IMPRESSION: 1. Fluoroscopy guided left hip joint injection of local anesthetic and steroid with decrease in the patient's presenting pain.
== END 2022-06-05 10:44 | disposition home or self-care (01) ==
PROVIDERS: PCP Family Medicine; Visit Provider Orthopaedic Surgery
DX: M16.12 Unilateral primary osteoarthritis, left hip (principal)
CPT/HCPCS: 20610; 77002; J1040

== ENCOUNTER 2022-06-30 11:12 | Outpatient (CLI) | payer MEDICARE, BC, SELFPAY ==
--- NOTE | ~2022-06-30 | XR_ITS ---
Lumbosacral Spine: AP, oblique, and lateral views, with neutral, flexion, extension positioning. Clinical History: Pain Findings: No acute fracture seen. 6 mm anterolisthesis of L4 over L5 is present. No instability evide nt on flexion or extension. There is advanced degenerative disc narrowing throughout the lumbar spine . There is advanced facet arthropathy from L4 through S1, with moderate facet arthropathy the upper l umbar spine. The sacroiliac joints are normally outlined. Impression: Moderate to advanced degenerative spondylosis. 6 mm anterolisthesis of L4 over L5, without evidence for instability. Reviewed, dictated and finalized at location M. Impression: Moderate to advanced degenerative spondylosis. 6 mm anterolisthesis of L4 over L5, without evidence for instability.
--- NOTE | ~2022-06-30 | XR_ITS ---
AP view of the pelvis and AP and lateral views of the bilateral hips Clinical history: Pain COMPARISON: 05/17/2022 Findings: No acute fracture or dislocation is seen. Proximal right femur and right hip joint are unre markable. Patient is status post prior ORIF for now healed fracture of the proximal left femur. Ortho pedic hardware is unchanged from prior exam. There is chronic flattening and remodeling of the left h umeral head with mild to moderate left hip joint degenerative change. Calcified uterine fibroids note d. Impression: No acute abnormality. Right hip joint is unremarkable. Stable remodeling and flattening of the left femoral head with mild to moderate degenerative change o f the left hip joint, as well as stable left orthopedic hardware and healed fracture deformity. Reviewed, dictated and finalized at location M. Impression: No acute abnormality. Right hip joint is unremarkable. Stable remodeling and flattening of the left femoral head with mild to moderate degenerative change of the left hip joint, as well as stable left orthopedic h ardware and healed fracture deformity.
== END 2022-06-30 11:13 | disposition home or self-care (01) ==
PROVIDERS: PCP Family Medicine; Visit Provider Family Medicine
DX: M47.816 Spondylosis without myelopathy or radiculopathy, lumbar region (principal); M25.559 Pain in unspecified hip
CPT/HCPCS: 72110; 73521

== ENCOUNTER 2022-10-23 11:05 | Outpatient (CLI) | payer MEDICARE, BC, SELFPAY ==
--- NOTE | 2022-10-23 11:11 | ECG_ITS ---
Measurements Intervals [place] Rate: 63 P: 68 AL: 177 QRS: -19 QRSD: 105 T: 31 QT: 393 QTc: 404 Interpretive Statements SINUS RHYTHM LEFT ATRIAL ENLARGEMENT DELAYED PRECORDIAL R/S TRANSITION BASELINE WANDER- I, II, AVR, AVL, AVF, V3-V6 BORDERLINE ECG COMPARED TO ECG 06/10/2021 00:37:10 NO SIGNIFICANT CHANGES Electronically Signed On 10-23-2022 11:35:07 CDT by Adelso Medina D.O.
== END 2022-10-23 11:06 | disposition home or self-care (01) ==
LOC: ANHCARD 11:07
PROVIDERS: PCP Family Medicine; Visit Provider Orthopaedic Surgery
DX: M16.12 Unilateral primary osteoarthritis, left hip (principal); I10 Essential (primary) hypertension; R94.31 Abnormal electrocardiogram [ECG] [EKG]
CPT/HCPCS: 93005